=== PATIENT | female | born 1940 | race Caucasian/White ===

== ENCOUNTER 2018-04-12 12:07 | Inpatient (IN) | payer OTHER ==
[~2018-04-12] VITALS: Ht 152.4 cm; Wt 79.8 kg
[~2018-04-12 12:07] MED LIST: KLO0.5 PO; MAC100 PO; METFORMIN500 M1 PO; NEU300 PO; XARELTO20 M1 PO; ZOC20 PO
[2018-04-12 12:11] VITALS: Ht 152.4 cm; Wt 79.8 kg
[2018-04-12 14:33] LABS: BASOPHIL % 0.5 % (0-2); PLATELET COUNT 240 x10^3mcL (130-400)
[2018-04-12 14:39] LABS: CALCIUM 8.3 mg/dL (8.5-10.1); CARBON DIOXIDE 28.5 mmol/L (21-32); CHLORIDE SERUM 106 mmol/L (98-107); GLUCOSE SERUM 104 mg/dL (74-106); SODIUM SERUM 142 mmol/L (136-145)
[2018-04-12 14:43] LABS: ALKALINE PHOSPHATASE 88 U/L (46-116); ALT/SGPT 23 U/L (14-59); AST/SGOT 20 U/L (15-37); BILIRUBIN TOTAL 0.2 mg/dL (0.20-1.00); TOTAL PROTEIN, SERUM 6.9 g/dL (6.4-8.2)
[2018-04-12 14:45] LABS: ALBUMIN 3.3 g/dL (3.4-5.0)
[2018-04-12] MEDS ORDERED: NOR10T (16:45)
[2018-04-12 19:02] VITALS: BP 107/57
[2018-04-12 19:56] LABS: microscopic required? YES; urine erythrocyte NEGATIVE (NEGATIVE)
[2018-04-12 20:42] VITALS: BP 107/48
[2018-04-12 21:14] LABS: RED BLOOD CELLS 3.3 M/mm3 (4.10-5.10)
[2018-04-12 21:17] LABS: CHOLESTEROL/HDL RATIO 2.7; MAGNESIUM 1.9 mg/dL (1.8-2.4); PHOSPHOROUS 4.5 mg/dL (2.5-4.9)
[2018-04-12 21:23] LABS: FREE T4 1.13 ng/dL (0.76-1.46); T4(THYROXINE) 8.2 ug/dL (4.7-13.3)
[2018-04-12 21:26] LABS: T3 TOTAL 1.45 ng/mL
[2018-04-12 21:50] LABS: TOTAL IRON BINDING CAPACITY 396 ug/dL (250-450)
[2018-04-12 21:51] LABS: IRON 31 ug/dL (50-170)
[2018-04-13] VITALS (7 sets, daily range): BP systolic 119–155; BP diastolic 40–88
[2018-04-13 07:36] LABS: CALCIUM 8.1 mg/dL (8.5-10.1); CHLORIDE SERUM 108 mmol/L (98-107); CREATININE SERUM 0.7 mg/dL (0.6-1.0); GLUCOSE SERUM 85 mg/dL (74-106); MAGNESIUM 2.1 mg/dL (1.8-2.4); PHOSPHOROUS 3.8 mg/dL (2.5-4.9); SODIUM SERUM 143 mmol/L (136-145)
[2018-04-13 08:07] LABS: BASOPHIL % 0.6 % (0-2); PLATELET COUNT 229 x10^3mcL (130-400)
[2018-04-13 08:08] LABS: RED CELL DISTRIBUTION WIDTH 15.6 % (11.5-14.5)
[2018-04-13 17:49] LABS: BASOPHIL % 0.5 % (0-2); PLATELET COUNT 209 x10^3mcL (130-400)
[2018-04-13 17:51] LABS: RED CELL DISTRIBUTION WIDTH 15.6 % (11.5-14.5)
[2018-04-14 06:10] VITALS: BP 117/47
[2018-04-14 07:29] LABS: CALCIUM 8.2 mg/dL (8.5-10.1); CARBON DIOXIDE 27.1 mmol/L (21-32); CHLORIDE SERUM 109 mmol/L (98-107); CREATININE SERUM 0.6 mg/dL (0.6-1.0); GLUCOSE SERUM 87 mg/dL (74-106); MAGNESIUM 2.1 mg/dL (1.8-2.4); PHOSPHOROUS 3.1 mg/dL (2.5-4.9); POTASSIUM SERUM 3.7 mmol/L (3.5-5.1); SODIUM SERUM 143 mmol/L (136-145)
[2018-04-14 07:48] LABS: BASOPHIL % 0.4 % (0-2); PLATELET COUNT 202 x10^3mcL (130-400)
[2018-04-14 07:57] LABS: RED CELL DISTRIBUTION WIDTH 15.8 % (11.5-14.5)
[2018-04-14 09:10] VITALS: BP 143/68
[2018-04-14 12:53] VITALS: BP 146/63
[2018-04-14] MEDS ORDERED: CAR1 PO (15:41)
[2018-04-14] MEDS ORDERED: PEP20 PO (15:41)
[2018-04-14] MEDS ORDERED: FER300 PO (15:41)
[2018-04-14] MEDS ORDERED: METP PO (15:41)
[2018-04-14 16:04] VITALS: BP 146/63
== END 2018-04-14 16:50 | disposition home or self-care (01) | DRG 377 ==
LOC: ED 12:07 → DU 17:46
PROVIDERS: Emergency Medicine; Internal Medicine; Internal Medicine Gastroenterology
PROC: 0DB48ZZ Excision of Esophagogastric Junction, Via Natural or Artificial Opening Endoscopic (ICD-10-PCS; 2018-04-13)
PROC: 0D568ZZ Destruction of Stomach, Via Natural or Artificial Opening Endoscopic (ICD-10-PCS; 2018-04-13)
PROC: 0DB68ZX Excision of Stomach, Via Natural or Artificial Opening Endoscopic, Diagnostic (ICD-10-PCS; principal; 2018-04-13 12:00)
PROC: 0W3P8ZZ Control Bleeding in Gastrointestinal Tract, Via Natural or Artificial Opening Endoscopic (ICD-10-PCS; 2018-04-13 12:00)
PROC: 0DB68ZZ Excision of Stomach, Via Natural or Artificial Opening Endoscopic (ICD-10-PCS; 2018-04-13 12:00)
PROC: 0DJD8ZZ Inspection of Lower Intestinal Tract, Via Natural or Artificial Opening Endoscopic (ICD-10-PCS; 2018-04-14)
DX: K92.2 Gastrointestinal hemorrhage, unspecified (principal); N17.0 Acute kidney failure with tubular necrosis; D62 Acute posthemorrhagic anemia; N39.0 Urinary tract infection, site not specified; J98.11 Atelectasis; K31.7 Polyp of stomach and duodenum; Q27.33 Arteriovenous malformation of digestive system vessel; K57.30 Diverticulosis of large intestine without perforation or abscess without bleeding; E11.65 Type 2 diabetes mellitus with hyperglycemia; R51 Headache; Z85.3 Personal history of malignant neoplasm of breast; Z85.42 Personal history of malignant neoplasm of other parts of uterus
CPT/HCPCS: 43235; 45378; 82962; 83880; 84439; C9113; J1200; J1610; J2250; J2270; J2310; J2405; J2765; J2916; J3010; J3490; J7030; Q0092